=== PATIENT | female | born 2000 | race Caucasian/White ===

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

== ENCOUNTER 2018-01-22 00:06 | Inpatient (IN) | payer OTHER ==
[2018-01-22] MEDS ORDERED: DEXTROSE 5%-LACTATED RINGERS 1,000 ML IV SCH (00:40)
[2018-01-22] MEDS ORDERED: AMPICILLIN - 2 GM in SODIUM CHLORIDE 100 ML IVPB ONE (00:40)
[2018-01-22 01:43] LABS: BASO % 0.1 % (0-2.0); EOS % 0.4 % (0-4.5); HEMATOCRIT 37.1 % (32.4-45.2); HEMOGLOBIN 12.9 GM/dL (10.7-15.3); LYMPH % 16.3 % (8-40); MCH 31.2 pg (25.7-33.7); MCHC 34.8 g/dl (32.0-36.0); MEAN CELL VOLUME 89.5 fl (80-96); MEAN PLT VOLUME 9.7 fl (7.5-11.1); MONO % 5.4 % (3.8-10.2); NEUT % 77.8 % (42.8-82.8); PLATELET COUNT 191 K/MM3 (134-434); RBC 4.14 M/mm3 (3.60-5.2); RDW 14.3 % (11.6-15.6); WHITE BLOOD COUNT 10.9 K/mm3 (4.0-10.0)
[2018-01-22 01:44] VITALS: BMI 25.7
[2018-01-22 01:54] LABS: INR 0.89 (0.82-1.09); PROTHROMBIN TIME (PATIENT) 10.1 SEC (9.7-13.0)
[2018-01-22 01:58] LABS: ACTIVATED PTT 25.9 SECONDS (26.9-34.4)
[2018-01-22 02:04] LABS: ANION GAP 11 (8-16); BLOOD UREA NITROGEN 5 mg/dL (7-18); CALCIUM 9.1 mg/dL (8.5-10.1); CHLORIDE 106 mmol/L (98-107); CO2 22 mmol/L (21-32); CREATININE 0.5 mg/dL (0.55-1.02); GLUCOSE,RANDOM 111 mg/dL (74-106); POTASSIUM 4.3 mmol/L (3.5-5.1); SODIUM 139 mmol/L (136-145)
[2018-01-22] MEDS ORDERED: LIDOCAINE HCL 1% PRESERVATIVE FREE - 30ML VIAL ONE (02:14)
[2018-01-22] MEDS ORDERED: OXYTOCIN 20 UNITS in 0.9% NS 20 UNIT/1,000 ML INFUS.BAG IV ONE (02:14)
--- NOTE | 2018-01-22 02:25 | HP ---
Past Medical History - Admission Chief Complaint: Labor pain History of Present Illness: 17 yo , LMP 04/20/17 @ 39.4 weeks gestation, EDC 01/25/18, admitted for labor pain. History Source: Patient Limitations to Obtaining History: No Limitations - Past Medical History ...: 1 ...Para: 0 ...Term: 0 ...: 0 ...Spon : 0 ...Induced : 0 ...Multiple Gestation: 0 ...LMP: 04/20/17 ... Weeks Gestation by Dates: 39.4 ...EDC by Dates: 01/25/18 ...EDC by Sono: 01/25/18 - Past Surgical History Past Surgical History: Yes: None Hx Myomectomy: No Hx Transabdominal Cerclage: No - Smoking History Smoking history: Never smoked Have you smoked in the past 12 months: No - Alcohol/Substance Use Hx Alcohol Use: No History of Substance Use: reports: None - Social History Usual Living Arrangement: Yes: With Parent History of Recent Travel: No Home Medications - Allergies Allergies/Adverse Reactions: Allergies Allergy/AdvReac Type Severity Reaction Status Date / Time No Known Allergies Allergy Verified 01/22/18 01:53 - Home Medications Home Medications: Ambulatory Orders Vit/Iron Fum/Folic AC [ Tablet] 1 each PO DAILY 01/22/18 Family Disease History - Family Disease History Family History: Unremarkable Review of Systems - Review of Systems Constitutional: reports: No Symptoms Eyes: reports: No Symptoms HENT: reports: No Symptoms Neck: reports: No Symptoms Cardiovascular: reports: No Symptoms Respiratory: reports: No Symptoms Gastrointestinal: reports: No Symptoms Genitourinary: reports: Pain Neurological: reports: No Symptoms Psychiatric: reports: No Symptoms Pain Intensity: 7 Physical Exam - Maternity Vital Signs: Vital Signs Temperature 98.6 F 01/22/18 01:31 Pulse Rate 109 H 01/22/18 01:31 Respiratory Rate 18 01/22/18 01:31 Blood Pressure 120/79 01/22/18 01:31 O2 Sat by Pulse Oximetry (%) Constitutional: Yes: Well Nourished Eyes: Yes: Conjunctiva Clear HENT: Yes: Atraumatic Neck: Yes: Supple Cardiovascular: Yes: Regular Rate and Rhythm Lungs: Clear to auscultation - Abdominal Exam/OB Number of Fetuses: Single Presentation: Vertex - Vaginal Exam/OB Dilatation (cm): 6 - Physical Exam ...Motor Strength: WNL Psychiatric: Yes: Alert, Oriented - Labs Lab Results: CBC, BMP 01/22/18 01:20 01/22/18 01:20 Problem List - Problems (1) Pain during labor Code(s): O99.89 - OTH DISEASES AND CONDITIONS COMPL PREG/CHLDBRTH; R52 - PAIN, UNSPECIFIED Assessment/Plan Active labor Admit to L&D Analgesia as needed Anticipate
[2018-01-22] MEDS ORDERED: WITCH HAZEL 50% (TUCKS) 40 PAD/JAR PAD TP PRN (03:45)
[2018-01-22] MEDS ORDERED: METHYLERGONOVINE MALEATE 0.2 MG/1 ML AMP IM PRN (03:45)
[2018-01-22] MEDS ORDERED: BENZOCAINE 28 GM HEMORRHOIDAL OINTMENT TP PRN (03:45)
[2018-01-22] MEDS ORDERED: ACETAMINOPHEN 325 MG TABLET (FP) PO PRN (03:45)
[2018-01-22] MEDS ORDERED: IBUPROFEN 600 MG TABLET (FP) PO PRN (03:45)
[2018-01-22] MEDS ORDERED: BENZOCAINE 20% 57 GM BOTTLE TP PRN (03:45)
[2018-01-22] MEDS ORDERED: OXYTOCIN 20 UNITS in 0.9% NS 20 UNIT/1,000 ML INFUS.BAG IV SCH (03:45)
[2018-01-22] MEDS ORDERED: BISACODYL 10 MG SUPP.RECT RC PRN (03:45)
--- NOTE | 2018-01-22 03:49 | PN ---
Delivery - Delivery Vaginal Delivery: Spontaneous Episiotomy/Laceration: 1st degree EBL (cc): 300 Delivery, Single - [place] Feeding Plan Initial Plan: Exclusive throughout hospitalization Remarks - Remarks Remarks: Normal spontaneous vaginal delivery of a live infant girl over first degree laceration. Nose / Oropharynx suctioned @ perineum. Cord clamped and cut. Placenta expelled spontaneously intact. Laceration repaired with 2.0 Chromic.
[2018-01-22] MEDS ORDERED: AMPICILLIN - 1 GM in SODIUM CHLORIDE 100 ML IVPB SCH (04:40)
[2018-01-22] MEDS ORDERED: ACETAMINOPHEN 325 MG TABLET (FP) ONE (05:14)
[2018-01-22] MEDS ORDERED: IBUPROFEN 600 MG TABLET (FP) PO ONE (05:14)
[2018-01-22 06:48] LABS: COCAINE, UR NEGATIVE ng/ml (CUTOFF=300); METHADONE, UR NEGATIVE ng/ml (CUTOFF=300); OPIATES, URI NEGATIVE ng/ml (CUTOFF=300); PHENCYCLIDINE,URINE NEGATIVE ng/ml (CUTOFF=25); URINE AMPHETAMINES NEGATIVE ng/ml (CUTOFF=500); URINE BARBITURATES NEGATIVE ng/ml (CUTOFF=200); URINE BENZODIAZEPINES NEGATIVE ng/ml (CUTOFF=200)
[2018-01-22] MEDS: FERROUS SO4 325 MG TABLET (FP) PO SCH ×3 (08:28→17:24)
[2018-01-22] MEDS: PRENATAL VITAMINS W/ FOLIC ACID TABLET (FP) PO SCH (09:28)
[2018-01-22] MEDS ORDERED: TUBERCULIN PPD 5 TU/0.1ML SYRINGE (IN PATIENT USE ONLY) ID ONE (11:00)
[2018-01-23] MEDS: FERROUS SO4 325 MG TABLET (FP) PO SCH ×3 (07:21→17:27)
[2018-01-23 08:18] LABS: BASO % 0.4 % (0-2.0); HEMATOCRIT 34.4 % (32.4-45.2); HEMOGLOBIN 11.6 GM/dL (10.7-15.3); LYMPH % 37.6 % (8-40); MCH 30.5 pg (25.7-33.7); MCHC 33.7 g/dl (32.0-36.0); MEAN CELL VOLUME 90.6 fl (80-96); MEAN PLT VOLUME 8.9 fl (7.5-11.1); MONO % 6.4 % (3.8-10.2); NEUT % 53.6 % (42.8-82.8); PLATELET COUNT 166 K/MM3 (134-434); RDW 14.5 % (11.6-15.6); WHITE BLOOD COUNT 9.9 K/mm3 (4.0-10.0)
[2018-01-23] MEDS: PRENATAL VITAMINS W/ FOLIC ACID TABLET (FP) PO SCH (10:06)
--- NOTE | 2018-01-23 11:08 | PN ---
Post Progress Note - Subjective Subjective: no complains , mild cramps Post Day: 1 Type of Delivery: Vital Signs: Vital Signs Temperature 97.6 F 01/23/18 08:39 Pulse Rate 76 01/23/18 08:39 Respiratory Rate 20 01/23/18 08:39 Blood Pressure 103/59 01/23/18 08:39 O2 Sat by Pulse Oximetry (%) 99 01/22/18 04:35 Breast Exam: Yes: Soft. No: Engorged Uterus: Yes: Fundus Firm, Fundus below umbilicus, Non-tender Lochia: Yes: Rubra Lochia, amount: Moderate Extremities: Yes: Calves non-tender Perineum: Yes: Laceration (perineum intact, healing, no soreness) - Labs Labs: CBC WBC 9.9 K/mm3 (4.0-10.0) 01/23/18 07:30 RBC 3.80 M/mm3 (3.60-5.2) 01/23/18 07:30 Hgb 11.6 GM/dL (10.7-15.3) D 01/23/18 07:30 Hct 34.4 % (32.4-45.2) 01/23/18 07:30 MCV 90.6 fl (80-96) 01/23/18 07:30 MCH 30.5 pg (25.7-33.7) 01/23/18 07:30 MCHC 33.7 g/dl (32.0-36.0) 01/23/18 07:30 RDW 14.5 % (11.6-15.6) 01/23/18 07:30 Plt Count 166 K/MM3 (134-434) 01/23/18 07:30 MPV 8.9 fl (7.5-11.1) 01/23/18 07:30 Neutrophils % 53.6 % (42.8-82.8) D 01/23/18 07:30 Lymphocytes % 37.6 % (8-40) D 01/23/18 07:30 Monocytes % 6.4 % (3.8-10.2) 01/23/18 07:30 Eosinophils % 2.0 % (0-4.5) D 01/23/18 07:30 Basophils % 0.4 % (0-2.0) D 01/23/18 07:30 Problem List - Problems (1) Vaginal delivery Code(s): O80 - ENCOUNTER FOR FULL-TERM UNCOMPLICATED DELIVERY Assessment/Plan stable. plan ct pp care
[2018-01-23] MEDS ORDERED: SENNOSIDES/DOCUSATE COMBO (SENNA PLUS) TABLET (UD) PO PRN (22:00)
[2018-01-23 23:21] VITALS: TEMP 98.4
--- NOTE | 2018-01-24 02:24 | DS ---
Physical Exam-PUBLIC RELATIONS PROFESSIONAL Vital Signs: Vital Signs Temperature 98.4 F 01/23/18 22:00 Pulse Rate 85 01/23/18 22:00 Respiratory Rate 18 01/23/18 22:00 Blood Pressure 114/68 01/23/18 22:00 O2 Sat by Pulse Oximetry (%) 99 01/22/18 04:35 Constitutional: Yes: Well Nourished Eyes: Yes: Conjunctiva Clear HENT: Yes: Atraumatic Neck: Yes: Supple Cardiovascular: Yes: Regular Rate and Rhythm Respiratory: Yes: Regular Gastrointestinal: Yes: Normal Bowel Sounds Pelvis: Yes: WNL External Genitalia: Yes: Normal Vaginal Exam: Yes: Normal Cervix: Yes: Normal Uterus: Yes: Firm ....Post : Yes: Uterus firm, Moderate lochia serosa Breast(s): Yes: WNL Musculoskeletal: Yes: WNL Extremities: Yes: WNL Neurological: Yes: Alert, Oriented ...Motor Strength: WNL Psychiatric: Yes: Alert, Oriented Labs: CBC, BMP 01/23/18 07:30 01/22/18 01:20 Delivery - Delivery Vaginal Delivery: Spontaneous Type of Anesthesia: None Episiotomy/Laceration: 1st degree EBL (cc): 300 Delivery, Single - Stages of Labor Date 1st Stage Initiatied: 01/21/18 Time 1st Stage Initiated: 06:00 Date 2nd Stage Initiated: 01/22/18 Time 2nd Stage Initiated: 03:10 Date of Delivery: 01/22/18 Time of Delivery: 03:26 Time Placenta Delivered: 03:28 - Condition of 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 Gender: Female Weight: 6 lb 14 oz Position: Right, OA Total Hours ROM (Hrs/Mins): 1Hr/25Min - 5 Minutes Total Score: 9 1 Minute Total Score: 9 - Feeding Plan Initial Plan: Exclusive throughout hospitalization Discharge Summary Reason For Visit: LABOR ADMIT Current Active Problems Pain during labor (Acute) Vaginal delivery (Acute) Procedures: Principal: Normal vaginal delivery Hospital Course: Routine care Condition: Good - Instructions Diet, Activity, Other Instructions: Regular diet No douching, no sexual intercourse x 6 weeks F/U in clinic in 6 weeks Disposition: HOME - Home Medications Comprehensive Discharge Medication List: Ambulatory Orders Vit/Iron Fum/Folic AC [ Tablet] 1 each PO DAILY 01/22/18
[2018-01-24] MEDS: PRENATAL VITAMINS W/ FOLIC ACID TABLET (FP) PO SCH (09:47)
[2018-01-24] MEDS: FERROUS SO4 325 MG TABLET (FP) PO SCH ×2 (09:47→12:05)
[2018-01-24 12:04] VITALS: BP 109/63; PULSE 82
== END 2018-01-24 13:10 | disposition home or self-care (01) | DRG 560 ==
LOC: JDEL 00:06 → JLDR 00:40 → J3W 05:49
PROVIDERS: ADMIT Obstetrics & Gynecology; ATTEND Obstetrics & Gynecology
PROC: 0HQ9XZZ Repair Perineum Skin, External Approach (ICD-10-PCS; principal; 2018-01-22)
PROC: 10E0XZZ Delivery of Products of Conception, External Approach (ICD-10-PCS; 2018-01-22)
DX: O70.0 First degree perineal laceration during delivery (principal); Z3A.39 39 weeks gestation of pregnancy; Z37.0 Single live birth
CPT/HCPCS: 36415; 59409; 80048; 80307; 85025; 85610; 85730; 86593; 86850; 86900; 86901; 87389

== ENCOUNTER 2020-08-24 00:35 | Emergency (ER) | payer OTHER ==
[2020-08-24 01:05] VITALS: BP 128/74; PULSE 88; TEMP 98.6; BMI 27.4
[2020-08-24] MEDS ORDERED: diphenhydrAMINE HCL 25 MG CAPSULE (FP) PO ONE ×2 (01:14→01:29)
[2020-08-24] MEDS ORDERED: predniSONE 20 MG TABLET (UD) PO ONE (01:14)
[2020-08-24] MEDS ORDERED: FAMOTIDINE 20 MG TABLET PO ONE (01:14)
[2020-08-24] MEDS ORDERED: predniSONE 20 MG TABLET (UD) ONE (01:30)
[2020-08-24] MEDS ORDERED: FAMOTIDINE 20 MG TABLET ONE (01:30)
== END 2020-08-24 01:42 | disposition home or self-care (01) ==
LOC: JER 00:35
DX: L50.9 Urticaria, unspecified (principal)
CPT/HCPCS: 99284-25